=== PATIENT | male | born 1940 | race Caucasian/White ===

== ENCOUNTER 2024-01-30 09:14 | Inpatient (IN) | payer MEDICARE, BC ==
[2024-01-30] VITALS (27 sets, daily range): BP systolic 125–153; BP diastolic 53–87
[~2024-01-30] VITALS: Ht 172.7 cm; Wt 90.7 kg
--- NOTE | 2024-01-30 09:15 | NUR ---
DR. WALTERS AT THE BEDSIDE TO ASSESS. DR. WALTERS REOVED NON REBREATHER IN ORDER TO DETERMINE BASELINE OXYGEN SATURATION AND TO OBTAI AN ABG.
[2024-01-30] MEDS ORDERED: AZITHROMYCIN 500 MG in SODIUM CHLORIDE 0.9% 250 ML IV ONE (09:25)
[2024-01-30] MEDS ORDERED: IPRATROPIUM-Albuterol 0.5MG-2.5MG/3 ML NEB ONE ×2 (09:25)
[2024-01-30] MEDS ORDERED: methylPREDNISolone SODIUM SUCC 125 MG/2 ML SDV IV ONE (09:25)
[2024-01-30] MEDS ORDERED: METHOCARBAM PO (09:39)
[2024-01-30] MEDS ORDERED: OMEPRAZOLE DR40 MG PO (09:40)
[2024-01-30] MEDS ORDERED: LORTAB 7.57.5 MG PO (09:42)
[2024-01-30] MEDS ORDERED: LISINOPRIL10 MG PO (09:43)
[2024-01-30] MEDS ORDERED: NEURONTIN400 MG PO (09:44)
[2024-01-30] MEDS ORDERED: TAMSULOSIN0.4 MG PO (09:44)
[2024-01-30] MEDS ORDERED: TRELEGY ELLIPTA1 AER (09:47)
[2024-01-30] MEDS ORDERED: VENTOLIN HFA108 MCG (09:49)
--- NOTE | 2024-01-30 09:51 | NUR ---
BLOOD CULTURES OBTAINED AT THIS TIME. ROCEPHIN, SOLUMEDROL AND AZITHROMYCIN INITIATED.BLOOD GAS DRAWN. PATIENT PLACED BACK ON NON REBREATHER BY RT.
[2024-01-30 09:58] LABS: BASO% 0.1 % (0-3); HEMATOCRIT 43.5 % (39.0-50.0); HEMOGLOBIN 14.2 g/dl (14.0-18.0); IMMATURE GRANULOCYTES 0.5 % (0.0-5.0); LYMPH% 4.5 % (15-41); MEAN CELL VOLUME 100.9 fL CALC (80.0-100.0); MEAN CORPUSCULAR HGB 32.9 pG CALC (26.0-32.0); MEAN CORPUSCULAR HGB CONC 32.6 g/dL CAL (32.0-36.0); MONO% 6.8 % (2-13); NEUT# 17.4 thou/uL (1.82-7.42); NEUT% 88.1 % (42-76); RED BLOOD COUNT 4.31 mill/uL (4.70-6.10); RED CELL DISTRI WIDTH 14.4 % (11.5-15.5)
[2024-01-30 10:12] LABS: ALBUMIN 3.9 g/dL (3.2-5.0); BILIRUBIN, TOTAL 1.4 mg/dL (0.2-1.3); CREATININE 0.9 mg/dL (0.7-1.3); POTASSIUM 3.7 mmol/l (3.5-5.1); TOTAL PROTEIN 7.7 g/dL (6.3-8.2)
[2024-01-30] MEDS ORDERED: AZITHROMYCIN 500 MG/VIAL SDV IV ONE (10:39)
--- NOTE | 2024-01-30 10:45 | NUR ---
PATIENT RESTING. NO DISTRESS. AWAITING TEST RESULTS.
--- NOTE | 2024-01-30 11:33 | NUR ---
Reassessment of patient completed. No distress noted.
--- NOTE | 2024-01-30 12:46 | NUR ---
patient sleeping. no distress.
[2024-01-30] MEDS ORDERED: ACETAMINOPHEN 325 MG/TAB PO PRN (14:30)
[2024-01-30] MEDS ORDERED: SODIUM CHLORIDE 0.9% 1,000 ML IV PRN (14:30)
[2024-01-30] MEDS ORDERED: MAGNESIUM HYDROXIDE 30 ML UDC PO PRN (14:30)
[2024-01-30] MEDS ORDERED: IPRATROPIUM-Albuterol 0.5MG-2.5MG/3 ML NEB PRN (14:35)
--- NOTE | 2024-01-30 15:28 | NUR ---
VERBAL REPORT GIVEN TO LILIANE SHAH. PATIENT TRANSFERED TO FLOOR
--- NOTE | 2024-01-30 15:40 | NUR ---
PT ARRIVED TO [facility] FROM ER VIA STRETCHER, PT AMBULATES WITH ASSIST TO BED. PT IS ALERT AND ORIENTED X 3, NO C/O PAIN AT THIS TIME. PT HAS TELE ON WITH ALL LEADS ATTACHED. PT WEARING O2 @ 2LITERS VIA NC. PT IV SITE TO RFA AND RAC CLEAN AND INTACT, SL. PT LUNGS WITH CRACKELS HEARD THROUGHOUT , BREATHING IS SHALLOW. PT ABD IS SOFT, LBM THIS MORNING PER PT. PT AMBULATES TO BATHROOM WITH CANE AND ONE ASSIST. PT HAS CALL LIGHT WITHIN REACH AND SAFETY MEASURES IN PLACE AT THIS TIME.
[2024-01-30] MEDS ORDERED: LISINOPRIL 10 MG/TAB PO SCH (16:00)
--- NOTE | 2024-01-30 16:00 | NUR ---
PT IN BED WITH HOB CONTINUES TO WEAR O2 @ 2 LITERS. PT HAS NO C/O PAIN AT THIS TIME. PT HAS CALL LIGHT WITHIN REACH AND SAFETY MEASURES IN PLACE AT THIS TIME.
[2024-01-30] MEDS ORDERED: hydrALAZINE HCL 20 MG/ML VIAL(1 ML) IV PRN (18:10)
[2024-01-30] MEDS ORDERED: HYDROcodone 7.5 MG/Acetaminophen 325 MG/COMBO PO PRN (18:55)
--- NOTE | 2024-01-30 20:00 | NUR ---
RESTING IN BED WITH EYES CLOSED. RESP EVEN AND UNLABORED. NO C/O PAIN OR DISCOMFORT.
[2024-01-30] MEDS ORDERED: GABAPENTIN 100 MG/CAP PO SCH (21:00)
[2024-01-30] MEDS ORDERED: methylPREDNISolone Sod Succ 40 MG/ML SDV IV SCH (21:00)
[2024-01-30] MEDS ORDERED: ENOXAPARIN SODIUM 40 MG/0.4 ML SYR SC SCH (21:00)
[2024-01-31] VITALS (7 sets, daily range): BP systolic 136–161; BP diastolic 56–88
--- NOTE | 2024-01-31 05:00 | NUR ---
RESTED WELL DURING NIGHT. NO S/S OF DISTRESS. DENIES PAIN OR DISCOMFORT. CALL LIGHT IN REACH.
[2024-01-31 05:37] LABS: BASO% 0.1 % (0-3); HEMATOCRIT 44.9 % (39.0-50.0); HEMOGLOBIN 14.5 g/dl (14.0-18.0); IMMATURE GRANULOCYTES 0.4 % (0.0-5.0); LYMPH% 6.4 % (15-41); MEAN CELL VOLUME 100.9 fL CALC (80.0-100.0); MEAN CORPUSCULAR HGB 32.6 pG CALC (26.0-32.0); MEAN CORPUSCULAR HGB CONC 32.3 g/dL CAL (32.0-36.0); MONO% 2.4 % (2-13); NEUT# 13.71 thou/uL (1.82-7.42); NEUT% 90.7 % (42-76); RED BLOOD COUNT 4.45 mill/uL (4.70-6.10); RED CELL DISTRI WIDTH 14.5 % (11.5-15.5)
[2024-01-31 05:45] LABS: ALBUMIN 3.5 g/dL (3.2-5.0); CREATININE 0.8 mg/dL (0.7-1.3); MAGNESIUM 2.2 mg/dL (1.6-2.3)
[2024-01-31 06:05] LABS: BILIRUBIN, TOTAL 0.7 mg/dL (0.2-1.3)
--- NOTE | 2024-01-31 08:00 | NUR ---
PT IN BED WITH HOB PT IS ALERT AND ORIENTED X 3. PT HAS NO C/O PAIN AT THIS TIME. PT HAS TELE ON WITH ALL LEADS ATTACHED. PT IV SITE TO RFA AND RAC CLEAN AND INTACT WITH NS INFUSING @100 ML/HR. PT CONTINUES ON O2 @ 2 LITERS VIA NC, LUNGS DIMINISHED. PT HAS URINAL AT BEDSIDE. PT HAS CALL LIGHT WITHIN REACH AND SAFETY MEASURES IN PLACE.
[2024-01-31] MEDS ORDERED: TAMSULOSIN HCL 0.4 MG CAP PO SCH (09:00)
[2024-01-31] MEDS ORDERED: PANTOPRAZOLE SODIUM Sesquihydr 40 MG/TAB PO SCH (09:00)
[2024-01-31] MEDS ORDERED: AZITHROMYCIN 500 MG in SODIUM CHLORIDE 0.9% 250 ML IV SCH (10:00)
[2024-01-31] MEDS ORDERED: FLUTICASONE/SALMETEROL 250 MCG/50 MCG PER DOSE INH IN SCH (12:00)
--- NOTE | 2024-01-31 12:00 | NUR ---
PT IN BED EATING LUNCH, FAMILY AT BEDSIDE. PT HAS NO C/O PAIN AT THIS TIME. PT HAS CALL LIGHT WITHIN REACH AND SAFEETY MEASURES IN PLACE AT THIS TIME.
[2024-01-31] MEDS ORDERED: IPRATROPIUM-Albuterol 0.5MG-2.5MG/3 ML NEB SCH (15:00)
--- NOTE | 2024-01-31 16:34 | NUR ---
PT IN BED HOB UP. PT HAS NO C/O PAIN AT THIS TIME. PT HAS CALL LIGHT WITHIN REACH AND SAFETY MEASURES IN PLACE AT THIS TIME.
--- NOTE | 2024-01-31 20:00 | NUR ---
RESTING IN BED, ALERT ORIENTED X4. RESP EVEN AMD UNLABORED. DENIES NEEDS. DENIES SOB. ABLE TO MAKE NEEDS KNOWN. CALL LIGHT IN REACH.
--- NOTE | 2024-02-01 | NUR ---
RESTING IN BED WITH EYES CLOSED. AROUSES EASILY. DENIES SHORTESS OF BREATH. CALL LIGHT IN REACH.
[2024-02-01 00:28] VITALS: BP 152/67
[2024-02-01 04:09] VITALS: BP 167/87
[2024-02-01 04:32] VITALS: BP 167/87
[2024-02-01 05:23] LABS: HEMATOCRIT 40.5 % (39.0-50.0); HEMOGLOBIN 13.4 g/dl (14.0-18.0); IMMATURE GRANULOCYTES 0.2 % (0.0-5.0); LYMPH% 5.8 % (15-41); MEAN CELL VOLUME 101.8 fL CALC (80.0-100.0); MEAN CORPUSCULAR HGB 33.7 pG CALC (26.0-32.0); MEAN CORPUSCULAR HGB CONC 33.1 g/dL CAL (32.0-36.0); MONO% 2.8 % (2-13); NEUT# 11.84 thou/uL (1.82-7.42); NEUT% 91.2 % (42-76); RED BLOOD COUNT 3.98 mill/uL (4.70-6.10); RED CELL DISTRI WIDTH 14.6 % (11.5-15.5)
[2024-02-01 05:25] LABS: ALBUMIN 3.1 g/dL (3.2-5.0); BILIRUBIN, TOTAL 0.5 mg/dL (0.2-1.3); CREATININE 0.8 mg/dL (0.7-1.3); MAGNESIUM 2.2 mg/dL (1.6-2.3); POTASSIUM 3.7 mmol/l (3.5-5.1); TOTAL PROTEIN 6.3 g/dL (6.3-8.2)
--- NOTE | 2024-02-01 05:49 | NUR ---
CONTINUES TO DENY NEEDS, call light in reach.
[2024-02-01 06:32] VITALS: BP 166/77
--- NOTE | 2024-02-01 08:00 | NUR ---
PT IN BED WITH HOB UP EATING BREAKFAST. PT IS ALERT AND OREINTED X 3. PT HAS NO C/O PAIN AT THIS TIME. PT HAS TELE ON WITH ALL LEADS ATTACHED. PT IV SITE TO [facility] AND RAC CLEAN AND ITNACT WITH NS @ 100 ML/HR INFUSING. PT HAS O2 @ 2 LITERS ON VIA NC NEEDED. PT AMBULATES TO BATHROOM WITH CANE FOR TOILETING NEEDS. PT HAS CALL LIGHT WITHIN REACH AND SAFETY MEASURES IN PLACE AT THIS TIME.
[2024-02-01] MEDS ORDERED: LISINOPRIL 20 MG/TAB PO SCH (09:00)
[2024-02-01 10:43] VITALS: BP 140/64
[2024-02-01] MEDS ORDERED: OMNICEF300 MG PO (10:58)
--- NOTE | 2024-02-01 13:54 | NUR ---
PT IN BED WITH HOB UP EATING LUNCH. PT HAS NO C/O PAIN AT THIS TIME. PT HAS CALL LIGHT WITHIN REACH AND SAFETY MEASURES IN PLACE AT THIS TIME.
[2024-02-01 15:03] VITALS: BP 159/76
--- NOTE | 2024-02-01 16:12 | NUR ---
Discharge instructions given. Patient verbalizes understanding of same. Discharged in stable condition via Wheelchair to Home with family. All belongings sent with pt.
--- NOTE | 2024-02-02 10:05 | NUR ---
Discharge follow up call completed 02/02/24. Pt says he is doing fairly well although he did not sleep well last night. Pt will get prescribed medication today and begin taking as directed. Patient plans to schedule a follow up appointment next week. No needs or concerns verbalized by patient at this time.
== END 2024-02-01 16:25 | disposition home or self-care (01) | DRG 193 ==
LOC: ED 09:14 → ED-I 12:49 → ED 13:16 → MS2 13:17
PROVIDERS: Family Medicine; Nurse Practitioner Family; ADMIT Student in an Organized Health Care Education/Training Program; ATTEND Student in an Organized Health Care Education/Training Program
DX: J18.9 Pneumonia, unspecified organism (principal); J96.01 Acute respiratory failure with hypoxia; J44.0 Chronic obstructive pulmonary disease with (acute) lower respiratory infection; J43.1 Panlobular emphysema; R91.8 Other nonspecific abnormal finding of lung field; I10 Essential (primary) hypertension; Z85.118 Personal history of other malignant neoplasm of bronchus and lung; Z92.21 Personal history of antineoplastic chemotherapy; Z92.3 Personal history of irradiation; Z87.891 Personal history of nicotine dependence; Z20.822 Contact with and (suspected) exposure to COVID-19
CPT/HCPCS: J1650; Q9967